=== PATIENT | female | born 1935 | race Caucasian/White ===

== ENCOUNTER 2016-06-11 10:10 | Emergency (ER) | payer OTHER, MEDICARE ==
[2016-06-11 10:15] VITALS: BP 156/81; PULSE 84; TEMP 97.7; BMI 24.4
--- NOTE | 2016-06-11 11:47 | PDOC ---
History of Present Illness - General Chief Complaint: Laceration Stated Complaint: RIGHT 3 RD FINGER LACERATION Time Seen by Provider: 06/11/16 10:29 - History of Present Illness Initial Comments: 06/11/16 11:51 Chief complaint: Finger injury History of present illness: The patient scraped her finger last night against a protruding nail. Intermittent bleeding since then. No pain, distal numbness or tingling, or limited range of motion. Review of systems: As above. In addition, no other injuries. No significant trauma or crush injury which might suggest fracture Past medical history: Intracranial hemorrhage. Social/family history reviewed and noncontributory Physical exam: Alert and oriented well-developed well-nourished no acute distress cheerful and cooperative Afebrile, vital signs stable Right third finger: There is a superficial skin avulsion of the radial aspect of the digit, overlying the middle phalanx. A small area of skin is avulsed and missing. Underlying tissue is intact in no deep structures are exposed. Full flexion and extension of the distal phalanx is present. No distal sensory deficits. Good capillary refill Impression: Minor skin avulsion Plan: Wound repair and follow-up as needed. Past History - Past Medical History Allergies/Adverse Reactions: Allergies Allergy/AdvReac Type Severity Reaction Status Date / Time Sulfa (Sulfonamide Allergy Verified 06/11/16 10:12 Antibiotics) SULF Allergy Uncoded 06/02/14 15:06 Home Medications: Ambulatory Orders Atorvastatin Ca [Lipitor -] 80 mg PO HS 06/02/14 Sertraline HCl [Zoloft] 50 mg PO DAILY 06/02/14 Calcium Carbonate/Vitamin D3 [Calcium 600 + Vit D Tablet] 1 each PO DAILY Cholecalciferol (Vitamin D3) [Vitamin D3] 2,000 unit PO DAILY 06/11/16 Losartan/Hydrochlorothiazide [Hyzaar 100-12.5 Tablet] 1 each PO DAILY 06/11/16 Multivitamin [Poly-Vitamin] 1 each PO DAILY 06/11/16 Verapamil HCl [Verapamil ER] 120 mg PO DAILY 06/11/16 Asthma: (LUNG NODULES) HTN: Yes Psychiatric Problems: Yes (DEPRESSION) - Surgical History Abdominal Surgery: Yes (basal cell ca stomach) Lung Surgery: Yes (LOBECTOMY RT LUNG) - Psycho/Social/Smoking Cessation Hx Anxiety: No Suicidal Ideation: No Smoking History: Former smoker Have you smoked in the past 12 months: No If you are a former smoker, when did you quit?: 40 YEARS AGO Information on smoking cessation initiated: No Hx Alcohol Use: Yes (OCCASIONAL) Drug/Substance Use Hx: No Substance Use Type: None *Physical Exam - Vital Signs Last Vital Signs Temp Pulse Resp BP Pulse Ox 97.7 F 84 18 156/81 98 06/11/16 10:11 06/11/16 10:11 06/11/16 10:11 06/11/16 10:11 06/11/16 10:11 Medical Decision Making - Medical Decision Making 06/11/16 11:55 Procedure note: Wound management The wound was gently scrubbed and irrigated with normal saline and dried. The Xeroform gauze was used with 2 x 2 and tube gauze to dress the wound. Wound instructions were given. There is a ring present on the finger, but there is no significant swelling, erythema, or pain at the site. The ring is fully mobile but cannot be passed over the PIP joint. The patient was advised to closely observe the finger, and if there is any increased swelling redness edema numbness, tingling, or pain, the ring may have to be removed. If this is the case, she is instructed to return to the emergency room immediately. Otherwise minimal use of the hand with elevation as much as possible as recommended. Patient fully ambulatory in no pain or other discomfort upon discharge with her to follow-up as directed. *DC/Admit/Observation/Transfer Diagnosis at time of Disposition: Avulsion of skin of finger Qualifiers: Encounter type: initial encounter Qualified Code(s): S61.209A - Unspecified open wound of unspecified finger without damage to nail, initial encounter - Discharge Dispostion Disposition: HOME Condition at time of disposition: Improved Admit: No - Referrals Referrals: Joel Valentin MD [Staff Physician] - - Patient Instructions Printed Discharge Instructions: DI for Avulsion Laceration (Not Requiring Sutures) Additional Instructions: Keep clean and dry. Rest and elevate as much as possible. Recheck immediately if sign of infection. Otherwise change dressing frequently, beginning in 3 days , keeping the wound well lubricated with antibiotic ointment. If the ring becomes tighter whether finger becomes swollen, return to the ER immediately for ring removal.
== END 2016-06-11 11:58 | disposition home or self-care (01) ==
LOC: FER 10:10
DX: S61.209A Unspecified open wound of unspecified finger without damage to nail, initial encounter (principal); W22.8XXA Striking against or struck by other objects, initial encounter; Y93.89 Activity, other specified; Y92.9 Unspecified place or not applicable; I10 Essential (primary) hypertension; F32.9 Major depressive disorder, single episode, unspecified; Z87.891 Personal history of nicotine dependence
CPT/HCPCS: 99282-25

== ENCOUNTER 2018-02-07 11:20 | Emergency (ER) | payer OTHER, MEDICARE ==
--- NOTE | 2018-02-07 11:25 | PDOC ---
History of Present Illness - General Chief Complaint: Cold Symptoms Stated Complaint: COUGH - History of Present Illness Initial Comments: The patient is an 82F w/ a history of lung cancer s/p resection in 09/2017 and s /p 3 of 4 rounds of chemotherapy who presents for evaluation of 1d of productive cough with associated congestion. Also endorses 1d of NB diarrhea. Endorses nausea w/o emesis Denies fevers/chills, sick contacts, [place], vision changes, chest pain, SOB, abdominal pain, N/V/C/D 02/07/18 13:22 Past History - Past Medical History Allergies/Adverse Reactions: Allergies Allergy/AdvReac Type Severity Reaction Status Date / Time Sulfa (Sulfonamide Allergy Verified 06/11/16 10:12 Antibiotics) Home Medications: Ambulatory Orders Atorvastatin Ca [Lipitor -] 80 mg PO HS 06/02/14 Sertraline HCl [Zoloft] 50 mg PO DAILY 06/02/14 Calcium Carbonate/Vitamin D3 [Calcium 600 + Vit D Tablet] 1 each PO DAILY Cholecalciferol (Vitamin D3) [Vitamin D3] 2,000 unit PO DAILY 06/11/16 Losartan/Hydrochlorothiazide [Hyzaar 100-12.5 Tablet] 1 each PO DAILY 06/11/16 Multivitamin [Poly-Vitamin] 1 each PO DAILY 06/11/16 Verapamil HCl [Verapamil ER] 120 mg PO DAILY 06/11/16 Asthma: (LUNG NODULES) HTN: Yes Psychiatric Problems: Yes (DEPRESSION) - Surgical History Abdominal Surgery: Yes (basal cell ca stomach) Lung Surgery: Yes (LOBECTOMY RT LUNG) - Suicide/Smoking/Psychosocial Hx Smoking History: Former smoker Have you smoked in the past 12 months: No If you are a former smoker, when did you quit?: 40 YEARS AGO Hx Alcohol Use: Yes (OCCASIONAL) Drug/Substance Use Hx: No Substance Use Type: None Review of Systems - Review of Systems Able to Perform ROS?: Yes Comments:: GENERAL/CONSTITUTIONAL: No fever or chills. No weakness HEAD, EYES, EARS, NOSE AND THROAT: No change in vision. No ear pain or discharge. No sore throat CARDIOVASCULAR: No chest pain or shortness of breath RESPIRATORY: Denies hemoptysis GASTROINTESTINAL: No vomiting, diarrhea or constipation GENITOURINARY: No dysuria, frequency, or change in urination MUSCULOSKELETAL: No joint or muscle swelling or pain. No neck or back pain SKIN: No rash NEUROLOGIC: No headache, vertigo, loss of consciousness, or change in strength/ sensation ENDOCRINE: No increased thirst. No abnormal weight change HEMATOLOGIC/LYMPHATIC: No anemia, easy bleeding, or history of blood clots ALLERGIC/IMMUNOLOGIC: No hives or skin allergy 02/07/18 11:25 *Physical Exam - Vital Signs Vital Signs Temp Pulse Resp BP Pulse Ox 98.3 F 91 H 20 152/80 100 02/07/18 11:21 02/07/18 11:21 02/07/18 11:21 02/07/18 11:21 02/07/18 11:21 02/07/18 20:03 - Physical Exam Comments: GENERAL: Awake, alert, and fully oriented, in no acute distress HEAD: No signs of trauma, normocephalic, atraumatic EYES: PERRLA, EOMI, sclera anicteric, conjunctiva clear ENT: Hearing grossly normal, nares patent, oropharynx clear without exudates LUNGS: No distress, speaks full sentences, clear to auscultation bilaterally HEART: Regular rate and rhythm, normal S1 and S2, no murmurs appreciated, peripheral pulses normal and equal bilaterally EXTREMITIES : Normal inspection, Normal range of motion, no edema. No clubbing or cyanosis NEUROLOGICAL: Cranial nerves II through XII grossly intact. No focal sensorimotor deficits SKIN: Warm, Dry, normal turgor, no rashes or lesions noted 02/07/18 11:25 ED Treatment Course - LABORATORY CBC & Chemistry Diagram: 02/07/18 12:10 02/07/18 12:10 - RADIOLOGY Radiology Studies Ordered: Category Date Time Status CHEST PA & LAT [RAD] Stat Radiology 02/07/18 11:24 Ordered Medical Decision Making - Medical Decision Making The patient is an 82F w/ a history lung ca s/p resection and s/p 3/4 chemo treatments (last Thursday) who presents for evaluation of 2d of productive cough CMP, CBC, Influenza swab CXR 02/07/18 13:33 No leukocytosis No anemia Lytes wnl Influenza neg Patient wants to be discharged. Plan to call patient with results of flu swab Edie Kelley (daughter) [phone] Discharge instructions and return precautions given Patient in agreement and verbalized understanding Dispo: home 02/07/18 13:53 *DC/Admit/Observation/Transfer Diagnosis at time of Disposition: URI (upper respiratory infection) Qualifiers: URI type: unspecified URI Qualified Code(s): J06.9 - Acute upper respiratory infection, unspecified - Discharge Dispostion Disposition: HOME Condition at time of disposition: Stable Decision to Admit order: No - Referrals Referrals: [facility] [place] [Provider Group] - Patient Instructions Printed Discharge Instructions: How to Avoid a Cold or Flu Additional Instructions: You were seen in the Emergency Department today for evaluation of cough and congestion. You were evaluated and found to not have a pneumonia. Review the handout provided at discharge. Please follow up with your primary care provider Return to the Emergency Department if you develop fevers/chills, worsening symptoms, shortness of breath, chest pain, or any new/concerning symptoms. - Post Discharge Activity
--- NOTE | 2018-02-07 11:27 | PDOC ---
Attending Attestation - Resident Resident Name: GinaRashid sullivan - ED Attending Attestation I have performed the following: I have examined & evaluated the patient, The case was reviewed & discussed with the resident, I agree w/resident's findings & plan, Exceptions are as noted - HPI HPI: 02/07/18 14:09 Productive cough 2-3 days, generalized weakness. No fever/chills, body aches, chest pain, shortness of breath. Recent chemotherapy for lung CTA, status post resection. No prior neutropenia or other immune compromise. - Physicial Exam PE: 02/07/18 14:10 Physical examination reveals that the patient is afebrile, with normal vital signs Mild nasal congestion, watery discharge, throat clear. Neck supple without bruit mass or nodes Lungs are clear with full breath sounds bilaterally, no wheezes rales or rhonchi. No tachypnea or dyspnea CV regular without murmur rub or gallop. No tachycardia Abdomen benign - Medical Decision Making 02/07/18 14:11 Assessment: Probable viral URI, rule out influenza, rule out pneumonia, rule out neutropenia Plan: Chest x-ray is clear. White blood count is 7.2 with adequate neutrophils. Influenza is pending. The patient will be called if the influenza test is positive and medication prescribed. Family needs to get home and cannot wait for the results at this time. Fully ambulatory and in no distress respiratory or other otherwise at discharge with family to follow-up as directed.
[2018-02-07 11:42] VITALS: BP 152/80; PULSE 91; TEMP 98.3; BMI 20.3
[2018-02-07 12:36] LABS: HEMATOCRIT 40.1 % (32.4-45.2); HEMOGLOBIN 12.9 GM/dl (10.7-15.3); MCHC 32.3 g/dl (32.0-36.0); MEAN CELL VOLUME 92.9 fl (80-96); MEAN PLT VOLUME 7.9 fl (7.5-11.1); PLATELET COUNT 187 K/MM3 (134-434); RBC 4.32 M/mm3 (3.60-5.2); RDW 14.2 % (11.6-15.6); WHITE BLOOD COUNT 7.2 K/mm3 (4.0-10.8)
[2018-02-07 12:44] LABS: ALBUMIN 3.4 g/dl (3.5-5.0); ALK PHOS 73 U/L (32-92); ANION GAP 11 MMOL/L (8-16); BILIRUBIN,TOTAL 0.8 mg/dl (0.2-1.0); BLOOD UREA NITROGEN 19 mg/dl (7-18); CALCIUM 8.7 mg/dl (8.4-10.2); CHLORIDE 95 mmol/L (98-107); CO2 28 mmol/L (22-28); CREATININE 0.9 mg/dl (0.6-1.3); GLUCOSE,RANDOM 123 mg/dl (74-106); POTASSIUM 3.8 mmol/L (3.5-5.1); SGOT/AST 27 U/L (10-42); SGPT/ALT 23 U/L (10-40); SODIUM 134 mmol/L (136-145); TOT PROT 6.1 g/dl (6.4-8.3)
[2018-02-07] MEDS ORDERED: SODIUM CHLORIDE 1,000 ML IV STA (12:54)
== END 2018-02-07 14:16 | disposition home or self-care (01) ==
LOC: FER 11:20
PROC: 3E0337Z Introduction of Electrolytic and Water Balance Substance into Peripheral Vein, Percutaneous Approach (ICD-10-PCS; principal; 2018-02-07)
DX: J06.9 Acute upper respiratory infection, unspecified (principal); Z85.3 Personal history of malignant neoplasm of breast; Z92.21 Personal history of antineoplastic chemotherapy
CPT/HCPCS: 36415; 71046-TC-FY; 80053; 85027; 87804; 99283-25; J7030

== ENCOUNTER 2018-03-28 09:05 | Emergency (ER) | payer OTHER, MEDICARE ==
[2018-03-28] MEDS ORDERED: SODIUM CHLORIDE 1,000 ML IV STA (09:08)
--- NOTE | 2018-03-28 09:08 | PDOC ---
History of Present Illness - General Chief Complaint: Pain Stated Complaint: RIGHT FLANK PAIN Time Seen by Provider: 03/28/18 09:07 History Source: Patient, Family Exam Limitations: No Limitations - History of Present Illness Initial Comments: 03/28/18 09:24 82F w/ a history of HTN, HLD, depression, breast ca s/p lumpectomy, lung cancer s/p resection in 09/2017 and s/p 4 of 4 rounds of chemotherapy, lung/pancreatic nodules presenting with progressive right flank/RLQ abdominal pain x 5 days, intermittent, no exacerbating or alleviating factors. She also endorses generalized weakness and feeling fuzzy, with difficulty remembering and recalling in the past 1 week. She is notably stressed from her husbands continued oncologic treatment for lymphoma. Last chemo 2 weeks ago, completed tx for lung ca. No f/c, n/v/d, urinary sx, hematuria, cp, sob, cough or congestion Usually is constipated. +flatus, last BM 3 days ago, nonbloody, no pain. Recent UTI s/p augmentin course x 1 week, which she completed. Since then, had episodes of loose stooling, that has been improving. No new changes in medications or travel she has her onc appt at [place] tomorrow - Dr Curtis Allergies: levaquin and sulfa abx Past Medical History: HTN, HLD, depression, breast ca s/p lumpectomy, lung cancer s/p resection in 09/2017 and s/p 4 of 4 rounds of chemotherapy Social history: Lives with family. Former smoker. No alcohol. No illicit drugs. Surgical history: lumpectomy, lung resection, SISI/BSO. Oncologist: Dr Curtis, [place]. ROS Constitutional: no fevers or chills. +weakness and malaise HEENT: no headache or dizziness. No congestion. CVS: no cp or syncope. Resp: no sob. No cough. Gastrointestinal: no nausea or vomiting. No diarrhea. No constipation. + abdominal and flank pain. Genitourinary: no urinary sx, hematuria. No frequency or urgency. MUSCULOSKELETAL: No joint pain and swelling. No neck or back pain. SKIN: no redness or skin changes, no discharge, no rash. No wounds. Hematologic: no easy bruising/bleeding. NEUROLOGIC: No headache, dizziness, LOC or altered mental status. No focal weakness, numbness or tingling. +confusion. No seizure. Allergic/Immunologic: no allergies All other systems reviewed and negative, or as documented in HPI. PE: General: Well appearing, awake and alert, NAD. HEENT: NCAT, PERRL, EOMI, clear conjunctiva, anicteric, dry mucus membranes, clear oropharynx, no oral lesions.. Neck: neck supple, FROM Resp: CTAB, normal and even respirations, no respiratory distress CVS: RRR, no murmurs, 2+ peripheral pulses throughout, no peripheral edema Abdomen: soft, normoactive bowel sounds. +Right sided, RLQ TTP. no rebound or guarding. No CVAT. Back: nontender, normal inspection and ROM MSK: no edema, [place] x4, ROM intact. No clubbing or cyanosis. normal bulk and tone. Extremities: no calf tenderness Neuro: alert, oriented appropriately; speech clear, no focal neurologic deficits Skin: warm and well perfused, cap refill <2 sec, normal color 03/28/18 09:26 03/28/18 09:26 03/28/18 12:57 Past History - Past Medical History Allergies/Adverse Reactions: Allergies Allergy/AdvReac Type Severity Reaction Status Date / Time levofloxacin Allergy Unknown Verified 03/28/18 09:12 Sulfa (Sulfonamide Allergy Verified 03/28/18 09:12 Antibiotics) Home Medications: Ambulatory Orders Atorvastatin Ca [Lipitor -] 80 mg PO HS 06/02/14 Sertraline HCl [Zoloft] 50 mg PO DAILY 06/02/14 Losartan/Hydrochlorothiazide [Hyzaar 100-12.5 Tablet] 1 each PO DAILY 06/11/16 Multivitamin [Poly-Vitamin] 1 each PO DAILY 06/11/16 Verapamil HCl [Verapamil ER] 120 mg PO DAILY 06/11/16 Oxycodone HCl 5 mg PO QID PRN #10 tablet MDD 4 03/28/18 Asthma: (LUNG NODULES) COPD: No HTN: Yes Psychiatric Problems: Yes (DEPRESSION) - Surgical History Abdominal Surgery: Yes (basal cell ca stomach) Lung Surgery: Yes (LOBECTOMY RT LUNG) - Suicide/Smoking/Psychosocial Hx Smoking History: Former smoker Have you smoked in the past 12 months: No If you are a former smoker, when did you quit?: 40 YEARS AGO Hx Alcohol Use: Yes (OCCASIONAL) Drug/Substance Use Hx: No Substance Use Type: None ED Treatment Course - LABORATORY CBC & Chemistry Diagram: 03/28/18 09:35 03/28/18 09:35 Medical Decision Making - Medical Decision Making 03/28/18 09:33 See HPI for details DDx abdominal pain: Renal colic, biliary colic, metabolic/electrolyte derangements. GERD, PUD, esophageal spasm, pancreatitis, hepatitis, constipation , ischemic vs inflammatory vs infectious colitis, gastroenteritis, cholecystitis , UTI, pyelonephritis, ileus, SBO, medication side effect, hernia, appendicitis , diverticulitis, mesenteric ischemia. abdominal mass/malignancy. Vital signs reviewed, wnl. no fever. mildly hypertensive, currently minimal pain unless palpated. Prior notes reviewed, including admissions, discharges and consultations. laboratory results and imaging reviewed, basic labs and lytes wnl, notable for anemia, mild change from prior normal results. H/H 10.4/32. mildly elevated lipase 470s, but no 3X higher than normal lactic_normal UA_neg for infection. EKG normal sinus rhythm, no interval abnormalities, narrow QRS, ST and T wave segments and morphology normal. Nonspecific T wave abnormalities ED course: IVF; no pain meds requested. feels improved with fluids and PO ice chips. CT a/p to r/o ischemia vs colitis vs appy with right sided Ap. neg for acute pathology, but incidentally noted 11x7cm right inferior liver mass , heterogenous material; primary vs metastatic disease call to [facility] to discuss results. spoke with combination window installer Dr Cabrera, [place] and followup outpatient appropriate tomorrow. pt has follow up tomorrow analgesia regimen discussed, tylenol for mild to mod pain; oxycodone for severe pain low dosing, side effect profile and fall risk discussed. no acute indication for admission at this time. pt feels clinically improved during ED stay. dispo: Pt to be discharged in stable condition. Patient and family made aware of impression and plan, return precautions discussed (including but not limited to worsening pain or symptoms), fevers, or signs of infection, chest pain, respiratory distress, inability to tolerate oral intake, dehydration, syncope, or neurologic changes). Follow up with PMD and/or specialist as recommended, follow up information provided, take medications as instructed for duration of time. continue with supportive care, avoid triggers and precipitants. Patient does not suffer from an acute life-threatening medical condition at this time she is safe for outpatient follow-up. 03/28/18 12:55 03/28/18 12:57 03/28/18 13:46 03/28/18 14:05 03/28/18 14:06 *DC/Admit/Observation/Transfer Diagnosis at time of Disposition: Abdominal pain, Liver mass, right lobe - Discharge Dispostion Disposition: HOME Condition at time of disposition: Good Decision to Admit order: No - Prescriptions Prescriptions: Oxycodone HCl 5 mg PO QID PRN #10 tablet MDD 4 PRN Reason: Pain Level 7 - 10 - Referrals Referrals: Ron Tripp [Primary Care Provider] - Delmar Curtis [Non Staff, Medical] - - Patient Instructions Printed Discharge Instructions: DI for Abdominal Pain-Adult Additional Instructions: Your laboratory / imaging results performed your blood work showed mild anemia, but that can be related to chemotherapy and treatment your CT abdomen and pelvis revealed a pancreatic lesion and 11 x 7cm liver mass with heterogenous material, unclear if this is primary vs metastatic malignancy , which should get close follow up with your oncologist. we have attempted to reach your oncologist, Dr Curtis and left message regarding your care with the combination window installer doctor, Dr Cabrera. Follow up with your physician and consultants as instructed, take your medications as instructed including tylenol 650mg every 6 hours as needed for mild to moderate pain and oxycodone 5 mg every 6 hours as needed for severe breaththrough pain. Return if worsening symptoms including fevers, headache, vomiting, visual or hearing disturbances, abdominal pain, chest pain, shortness of breath, syncope, dehydration, inability to take things by mouth/vomiting, altered mental status, or worsening concerning symptoms. your medications on discharge include Oxycodone which has side effects may include upset stomach, abdominal pain, vomiting, or diarrhea, sleepiness, increased fall risk and constipation. do not drink alcohol with your medications. - Post Discharge Activity
[2018-03-28 09:31] VITALS: TEMP 98.3; BMI 19.5
[2018-03-28 10:32] LABS: ALBUMIN 2.9 g/dl (3.4-5.0); ALK PHOS 105 U/L (45-117); ANION GAP 10 MMOL/L (8-16); BILIRUBIN,TOTAL 0.3 mg/dl (0.2-1); BLOOD UREA NITROGEN 16 mg/dl (7-18); CALCIUM 8.9 mg/dl (8.5-10); CHLORIDE 98 mmol/L (98-107); CO2 28 mmol/L (21-32); CREATININE 0.7 mg/dl (0.55-1.3); GLUCOSE,RANDOM 95 mg/dl (74-106); HEMOGLOBIN 10.4 GM/dl (10.7-15.3); MCHC 32.3 g/dl (32.0-36.0); MEAN CELL VOLUME 92.7 fl (80-96); MEAN PLT VOLUME 7.8 fl (7.5-11.1); PLATELET COUNT 240 K/MM3 (134-434); POTASSIUM 3.7 mmol/L (3.5-5.1); RBC 3.45 M/mm3 (3.60-5.2); RDW 13.8 % (11.6-15.6); SGOT/AST 33 U/L (15-37); SGPT/ALT 33 U/L (13-61); SODIUM 136 mmol/L (136-145); WHITE BLOOD COUNT 4.7 K/mm3 (4.0-10.8)
[2018-03-28 11:18] LABS: LIPASE 471 U/L (73-393)
[2018-03-28 12:53] LABS: PH,URINE 5.5 (4.5-8); URINE APPEARANCE Clear; URINE BILIRUBIN Negative (NEGATIVE); URINE COLOR Yellow; URINE GLUCOSE (UA) Negative (NEGATIVE); URINE KETONE Negative (NEGATIVE); URINE LEUK ESTERASE Negative (NEGATIVE); URINE NITRITE Negative (NEGATIVE); URINE PROTEIN Negative (NEGATIVE); URINE UROBILINOGEN 0.2 (0.2-1.0)
[2018-03-28 13:42] LABS: EPI CELLS FEW /HPF; URINE BACTERIA NONE SEEN /hpf (NEGATIVE); URINE RBC 0-3 /hpf (0-3); URINE WBC 0-3 (0-5)
[2018-03-28 13:45] VITALS: BP 169/82; PULSE 81
--- NOTE | 2018-03-29 11:01 | EKG ---
Test Reason : Blood Pressure : / mmHG Vent. Rate : 084 BPM Atrial Rate : 084 BPM P-R Int : 186 ms QRS Dur : 082 ms QT Int : 362 ms P-R-T Axes : 059 025 063 degrees QTc Int : 427 ms NORMAL SINUS RHYTHM POSSIBLE LEFT ATRIAL ENLARGEMENT BORDERLINE ECG NO PREVIOUS ECGS AVAILABLE Confirmed by CATRACHITO ALEJO, RIZWANA ([id number]) on 03/29/2018 11:01:28 AM Referred By: MD COBOS Confirmed By:RIZWANA WINSTON MD
[2018-03-30 07:35] LABS: PLATELET ESTIMATE ADEQUATE
== END 2018-03-28 14:13 | disposition home or self-care (01) ==
LOC: FER 09:05
PROC: 3E0337Z Introduction of Electrolytic and Water Balance Substance into Peripheral Vein, Percutaneous Approach (ICD-10-PCS; principal; 2018-03-28)
DX: R10.9 Unspecified abdominal pain (principal); R16.0 Hepatomegaly, not elsewhere classified; I10 Essential (primary) hypertension; E78.5 Hyperlipidemia, unspecified; F32.9 Major depressive disorder, single episode, unspecified; Z85.3 Personal history of malignant neoplasm of breast
CPT/HCPCS: 36415; 74177-TC; 80053; 81003; 81015; 83605; 83690; 85025; 87086; 93005; 99283-25; J7030

== ENCOUNTER 2018-04-10 12:45 | Emergency (ER) | payer OTHER, MEDICARE ==
--- NOTE | 2018-04-10 12:55 | PDOC ---
History of Present Illness - General Chief Complaint: Pain Stated Complaint: LEFT LEG VEIN SWELLING Time Seen by Provider: 04/10/18 12:49 History Source: Patient Exam Limitations: No Limitations - History of Present Illness Initial Comments: 04/10/18 13:49 HPI 82 YOF with h/o varicose veins, HTN, HLD, depression, breast ca s/p lumpectomy, lung cancer s/p resection in 09/2017, recently dx'd 03/28/18 with metastatic lung ca to L3 vertebral body, rt femur, liver presenting with intermittent left leg pain and varicose veins x 1 week; no falls or trauma. also notes generalized weakness and frontal headache x 1 week, but no visual or hearing disturbances, focal weakness or paresthesias. no gait instability, or speech changes. of note, she was recently worked up with PET scan for her metastatic lung ca, getting immunomodulatory treatment, last tx 1 week ago with [facility]. Denies confusion or AMS, fever, chills, chest pain, SOB, palpitation, dizziness , N, V, D, abdominal pain, bladder and bowel problems, Allergies: levaquin and sulfa abx Past Medical History: HTN, HLD, depression, breast ca s/p lumpectomy, lung cancer s/p resection in 09/2017 and s/p 4 of 4 rounds of chemotherapy Social history: Lives with family. Former smoker. No alcohol. No illicit drugs. Surgical history: lumpectomy, lung resection, SISI/BSO. Oncologist: Dr Curtis, [facility]. ROS Constitutional: no fevers or chills. +generalized weakness HEENT: +headache. no dizziness. No congestion. No visual/hearing disturbances. CVS: no cp or syncope. Resp: no sob. No cough. Gastrointestinal: no abdominal pain, nausea or vomiting. Genitourinary: no urinary sx, hematuria. no urgency or frequency. no bowel or bladder incontinence. MUSCULOSKELETAL: No joint pain and swelling. No neck or back pain. SKIN: no redness or skin changes, no discharge, no rash. No wounds. Hematologic: no easy bruising/bleeding. NEUROLOGIC: +headache, No dizziness, LOC or altered mental status. No weakness, numbness or tingling. Allergic/Immunologic: no allergies All other systems reviewed and negative, or as documented in HPI. PE: General: Well appearing, awake and alert, NAD. HEENT: NCAT, PERRL, EOMI, clear conjunctiva, anicteric, moist mucus membranes, clear oropharynx, no oral lesions.. Neck: neck supple, FROM Resp: CTAB, normal and even respirations, no respiratory distress CVS: RRR, no murmurs, 2+ peripheral pulses throughout, no peripheral edema Abdomen: soft, NTND, no peritoneal signs. Back: nontender, normal inspection and ROM MSK: no edema, M[place] x4, ROM intact. No clubbing or cyanosis. normal bulk and tone. pelvis stable Extremities: no calf tenderness; +prominent varicose veins and tortuosities in BLE, left > right with no firmness, erythematous skin changes or palp cord. Neuro: alert, oriented appropriately; no focal neurologic deficits Skin: warm and well perfused, cap refill <2 sec, normal color 04/10/18 13:49 Past History - Past Medical History Allergies/Adverse Reactions: Allergies Allergy/AdvReac Type Severity Reaction Status Date / Time levofloxacin Allergy Unknown Verified 03/28/18 09:12 Sulfa (Sulfonamide Allergy Verified 03/28/18 09:12 Antibiotics) Home Medications: Ambulatory Orders Atorvastatin Ca [Lipitor -] 80 mg PO HS 06/02/14 Sertraline HCl [Zoloft] 50 mg PO DAILY 06/02/14 Losartan/Hydrochlorothiazide [Hyzaar 100-12.5 Tablet] 1 each PO DAILY 06/11/16 Verapamil HCl [Verapamil ER] 120 mg PO DAILY 06/11/16 Diazepam [Valium] 5 mg PO DAILY PRN 04/10/18 Docusate Sodium [Colace] 100 mg PO BID PRN 04/10/18 Pembrolizumab [Keytruda] 100 mg IV ASDIR 04/10/18 Asthma: (LUNG NODULES) CVA: Yes COPD: No HTN: Yes Hypercholesterolemia: Yes Psychiatric Problems: Yes (DEPRESSION) - Surgical History Abdominal Surgery: Yes (basal cell ca stomach) Lung Surgery: Yes (LOBECTOMY RT LUNG) - Suicide/Smoking/Psychosocial Hx Smoking History: Former smoker Have you smoked in the past 12 months: No If you are a former smoker, when did you quit?: 40 YEARS AGO Hx Alcohol Use: Yes (OCCASIONAL) Drug/Substance Use Hx: No Substance Use Type: None ED Treatment Course - LABORATORY CBC & Chemistry Diagram: 02/09/19 13:35 04/10/18 13:35 - RADIOLOGY Radiology Studies Ordered: Category Date Time Status HEAD CT WITHOUT CONTRAST [CT] Stat CT Scan 04/10/18 12:51 Ordered FEMUR-RIGHT [RAD] Stat Radiology 04/10/18 12:50 Ordered KNEE 3 POS-LEFT [RAD] Stat Radiology 04/10/18 12:52 Ordered DUPLEX VASCUL US-1 LEG [US] Stat Ultrasound 04/10/18 12:51 Ordered Medical Decision Making - Medical Decision Making 04/10/18 13:59 hpi as documented VS wnl. DDx. superficial thrombophlebitis, varicose veins, DVT, hypercoagulable state, electrolyte/metabolic derangements, [employer] MANAG[employer] MANAGER lesion/mets, path fx/injury to bone. spoke with family member, Dr Chavez - reviewed [facility] records and plans, with recent blood work as well as PET scan/new findings and active tx for her metastatic lung ca. of note, mets to L3 vertebral body, rt femur, lung and liver. MRI upcoming this week for brain to eval for brain mets. labs and lytes wnl, unchanged from prior, no significant elevations in LFTs. concern for DVT with setting of malignancy and hypercoag state, will do duplex CT head to r/o PROJECT MANAGEMENT MANAGER lesion, given new onset headache of unclear etiology; no focal neuro deficits, no visual or hearing disturbances, speech is clear. doubt CVA with 1 wk history as well as no focality of neuro sx. CT head neg for acute PROJECT MANAGEMENT MANAGER pathology or stroke; chronic microvascular changes Xrays _ NO OSSEOUS injuries or path fx/lesions Duplex_neg for DVT; +superficial thrombosed varicose vein treat supportively, otc analgesia with nsaid vs asa/ compression stocking, elevate extremity, repeat US in 1 week if continues to be symptomatic. updated pt and family members. dispo: Pt to be discharged in stable condition. Patient and family made aware of impression and plan, return precautions discussed (including but not limited to worsening pain or symptoms), fevers, or signs of infection, chest pain, respiratory distress, inability to tolerate oral intake, dehydration, syncope, or neurologic changes). Follow up with PMD and/or specialist as recommended, follow up information provided, take medications as instructed for duration of time. continue with supportive care, avoid triggers and precipitants. Patient does not suffer from an acute life-threatening medical condition at this time she is safe for outpatient follow-up. 04/10/18 15:14 04/10/18 15:43 *DC/Admit/Observation/Transfer Diagnosis at time of Disposition: Leg pain, left Varicose vein of leg Qualifiers: Varicose vein complication: unspecified Laterality: left Qualified Code(s): I83.92 - Asymptomatic varicose veins of left lower extremity - Discharge Dispostion Disposition: HOME Condition at time of disposition: Good - Referrals Referrals: Ron Tripp [Primary Care Provider] - Delmar Curtis [Non Staff, Medical] - - Patient Instructions Printed Discharge Instructions: DI for Varicose Veins, DI on Treatment of Varicose Veins of the Leg, DI for Superficial Thrombophlebitis Additional Instructions: rest and elevate extremity compression stockings for the clot noted in your varicose veins. due to this, and your cancer history, you are at risk for propagation into a deep vein thrombosis, if your symptoms persist after 1 week, you should repeat your ultrasound you should continue to ambulate and maintain physical activity you can take aleve/advil/motrin or aspirin as needed, for the pain and inflammation. your CT scan was negative. Xrays also negative, results provided follow up with your primary doctor and oncologist Dr Curtis with the results return precautions if worsening symptoms such as, but not limited to: ( including but not limited to worsening pain or symptoms), fevers, or signs of infection, chest pain, respiratory distress, inability to tolerate oral intake, dehydration, syncope, leg pain or swelling, skin color changes or neurologic changes such as weakness numbness or tingling) - Post Discharge Activity
[2018-04-10 13:13] VITALS: BMI 19.5
[2018-04-10 13:42] LABS: EOS % 3.2 % (0-4.5); HEMATOCRIT 31.2 % (32.4-45.2); HEMOGLOBIN 9.7 GM/dl (10.7-15.3); LYMPH % 15.3 % (8-40); MCH 28.8 pg (25.7-33.7); MCHC 31.2 g/dl (32.0-36.0); MEAN CELL VOLUME 92.1 fl (80-96); MEAN PLT VOLUME 7.4 fl (7.5-11.1); NEUT % 66.5 % (42.8-82.8); PLATELET COUNT 321 K/MM3 (134-434); RBC 3.39 M/mm3 (3.60-5.2); RDW 13.8 % (11.6-15.6); WHITE BLOOD COUNT 5.7 K/mm3 (4.0-10.8)
[2018-04-10 13:53] LABS: ALBUMIN 2.5 g/dl (3.4-5.0); ALK PHOS 134 U/L (45-117); ANION GAP 12 MMOL/L (8-16); BILIRUBIN,TOTAL 0.5 mg/dl (0.2-1); BLOOD UREA NITROGEN 18 mg/dl (7-18); CALCIUM 8.8 mg/dl (8.5-10); CHLORIDE 94 mmol/L (98-107); CO2 26 mmol/L (21-32); CREATININE 0.8 mg/dl (0.55-1.3); GLUCOSE,RANDOM 96 mg/dl (74-106); POTASSIUM 4.1 mmol/L (3.5-5.1); SGOT/AST 81 U/L (15-37); SGPT/ALT 64 U/L (13-61); SODIUM 132 mmol/L (136-145)
[2018-04-10 15:45] VITALS: BP 146/68; PULSE 78; TEMP 98.2
== END 2018-04-10 16:13 | disposition home or self-care (01) ==
LOC: FER 12:45
DX: M79.605 Pain in left leg (principal); I83.92 Asymptomatic varicose veins of left lower extremity; Z85.118 Personal history of other malignant neoplasm of bronchus and lung; I10 Essential (primary) hypertension; E78.5 Hyperlipidemia, unspecified; F32.9 Major depressive disorder, single episode, unspecified
CPT/HCPCS: 36415; 70450-TC; 73552-TC-LT-FY; 73552-TC-RT-FY; 73562-TC-LT-FY; 80053; 85025; 93971-TC; 99282-25